=== PATIENT | male | born 1965 | race Two or more races ===

== ENCOUNTER → 2020-09-29 15:00 | Outpatient (CLI) | payer OTHER | END | disposition home or self-care (01) | LOC: PPH VACUNA 15:00 | DX: Z23 Encounter for immunization (principal) ==

== ENCOUNTER 2021-06-13 10:50 | Outpatient (CLI) | payer OTHER | END 2021-06-13 10:52 | disposition home or self-care (01) | LOC: PPH VACUNA 10:50 | PROVIDERS: ATTEND Emergency Medicine Pediatric Emergency Medicine | DX: Z23 Encounter for immunization (principal) ==